=== PATIENT | female | born 1940 | race Caucasian/White ===

== ENCOUNTER → 2016-04-29 | Outpatient (CLI) | payer MEDICARE ==
[~2016-04-29] MED LIST: BRIM10DR7 BOTH EYES; CIPR-212 PO; GABA-338 PO; LATA2.5D6 OP; METO-230 PO; OXYC10TA51; SERT100T12 PO; TAMS-1 PO
== END ==
LOC: WC.BC 15:27
DX: Z12.31 Encounter for screening mammogram for malignant neoplasm of breast (principal); N64.59 Other signs and symptoms in breast
CPT/HCPCS: 77063; G0202

== ENCOUNTER → 2016-05-13 | Outpatient (CLI) | payer MEDICARE ==
--- NOTE | 2016-05-13 12:56 | DI ---
Indication: ITS.REASON: MICROSCOPIC HEMATURIA, LEFT FLKELSI ARIZAA R31.29, R10.9 PROCEDURE: CT RENAL W/O CONTRAST: Encounter: Initial Comparison: None Technique: Axial CT images were performed through the abdomen and pelvis without intravenous contrast. Coronal and sagittal two-dimensional reformats. Automated Exposure Control and Iterative Reconstruction dose reducing techniques were utilized. Findings: Multiple small noncalcified nodules in the lung bases. These are slightly irregular and have a seemingly random distribution. The largest nodule on axial image #5 of the thin slice sections measures 8 mm in diameter. Most of the nodules are between 2 and 5 mm in size. Liver is diffusely decreased in attenuation consistent with fatty infiltration. The gallbladder is surgically absent. The spleen, pancreas and adrenal glands are within normal limits. 6 mm stone in the left renal pelvis. 2 mm stone in the lower pole of the right kidney. Metallic clip next to the right renal hilum. No ureteral stones. Calcifications in the bladder near the urethral origin. These measure up to 1.2 cm in length. A couple of these may be outside of the bladder. No free fluid. Moderate stool in the colon. Mild sigmoid diverticulosis without acute diverticulitis. No bowel obstruction. Bone windows show degenerative change in the spine with a previously treated L1 compression fracture. Impression: 1. Multiple irregular pulmonary nodules in the lung bases raising concern for metastatic disease. Granulomatous disease and sarcoidosis would also be within the differential. Recommend correlation with any available prior CT scans including the chest. If comparisons aren't available a dedicated chest CT is recommended for more complete evaluation. 2. Bilateral nephrolithiasis with multiple apparent bladder stones. .
== END ==
LOC: IMA 12:05
PROVIDERS: ATTEND Specialist
DX: N20.0 Calculus of kidney (principal); N32.89 Other specified disorders of bladder; R91.8 Other nonspecific abnormal finding of lung field; R10.812 Left upper quadrant abdominal tenderness; R31.29 Other microscopic hematuria